=== PATIENT | female | born 1950 | race Caucasian/White ===

== ENCOUNTER 2021-03-03 15:26 | Emergency (ER) | payer MEDICARE, MEDICAID, SELFPAY ==
[2021-03-03 15:31] VITALS: BP 146/85; PULSE 83; RESP 15; TEMP 37.1; O2SAT 97; BMI 40.4
--- NOTE | 2021-03-03 15:32 | ED_ITS ---
HPI - Chest Pain General: Chief Complaint: Chest Pain Stated Complaint: CHEST PAIN Time Seen by Provider: 03/03/21 15:32 History of Present Illness: HPI narrative: Ms. Johns is a 70-year-old lady with significant past medical history of hypertension, hyperlipidemia, COPD Who presents to the emergency department due to chest pain. Symptom onset was approximately 3 days ago and subacute. She describes intermittent pressure across her chest as well as radiation down the left arm. She noticed that this correlated with high blood pressure despite her taking her blood pressure medication. She describes that the characteristic is a warm or tingly feeling. There is no associated lightheadedness, dizziness, nausea. There is mild associated shortness of breath due to discomfort. Overall the intensity is moderate. She denies similar episodes in the past. There are no other specific exacerbating or relieving factors or exercise component that the patient endorses. Review of Systems General: Reports: 10 or more systems reviewed and unremarkable except in HPI and below Narrative: CONSTITUTIONAL: denies fever, fatigue, weakness EYES - denies pain, denies loss of vision EARS - denies ear issues. NOSE - denies congestion or rhinorrhea. THROAT - denies sore throat or difficulty swallowing. CARDIOVASCULAR -see HPI RESPIRATORY -see HPI GASTROINTESTINAL - denies abdominal pain, no nausea vomiting, no changes in bowel habits GENITOURINARY - denies dysuria or urinary frequency MUSCULOSKELETAL- denies deformity or pain SKIN - denies rashes or new changed skin lesions NEUROLOGIC - denies focal weakness or sensory changes HEMATOLOGIC/LYMPHATIC - denies easy bruising or lymphadenopathy. Physical Exam Narrative: EXAM NARRATIVE: GENERAL/CONSTITUTIONAL - well-appearing. No acute distress. Eyes - PERRL, no conjunctival injection ENMT - Atraumatic external nose and ears. Moist mucous membranes NECK - supple. trachea midline CARDIOVASCULAR - regular rate and rhythm. Peripheral pulses 2+ and equal RESPIRATORY -clear to auscultation bilaterally. No retractions or accessory muscle use. ABDOMEN/GI - Nontender/Nondistended. No tenderness to percussion or evidence of peritonitis MSK - Extremities without obvious deformity or tenderness to palpation SKIN - Warm, Dry NEURO - alert and appropriately oriented. strength and sensation intact. Moves all extremities equally. PSYCH - Appropriate mood and affect Course ED course: - Patient was seen and evaluated by me at bedside - Patient placed on cardiac monitors, IV access obtained - Initial evaluation notable for no acute distress, nontoxic appearance. - Labs notable for no acute abnormality to explain the patient's symptoms, negative delta troponin. - Imaging notable for no acute abnormality to explain patient's symptoms - Upon serial reexamination after treatment the patient was similar - Based on patient history, evaluation, labs, and imaging as interpreted the most likely cause of the patient's condition is chest pain of unclear etiology - The results of ED evaluation were discussed with the patient. I explained the methodology and risk stratification of heart score and the fact that the patient is moderate risk which means up to roughly 20% 45-day risk of major adverse cardiac events. I recommended admission however the patient would like to follow-up in the outpatient setting. Case management order written. I discussed. followup plan, and return precautions. The patient verbalized understanding and felt safe for discharge. - Patient discharged in satisfactory condition. Vital Signs: Vital signs: Vital Signs Temperature 98.8 F 03/03/21 15:31 Pulse Rate 85 03/03/21 20:04 Respiratory Rate 16 03/03/21 20:04 Blood Pressure 147/100 03/03/21 20:04 Pulse Oximetry 96 03/03/21 20:04 MDM - Chest Pain Medical Records: Attestation: I reviewed the patient's medical records. Lab Data: Attestation: I reviewed the patient's lab results. Labs: Lab Results 03/03/21 03/03/21 03/03/21 Range/Units 16:00 16:00 16:00 WBC 11.0 H (4.0-10.0) 10^3/ uL RBC 4.94 (4.1-5.3) 10^6/u L Hgb 13.8 (11.5-15.3) g/dL Hct 43.3 (37.0-47.0) % MCV 87.7 (81-99) fl MCH 27.9 L (28.0-34.0) pg MCHC 31.9 (30.0-36.0) g/dL RDW 13.6 (12.1-15.1) % Plt Count 332 (130-400) 10^3/c mm MPV 9.1 (7.4-10.4) fL Neut % (Auto) 74.4 % Lymph % (Auto) 18.1 % [place] % (Auto) 6.4 % Eos % (Auto) 0.2 % Baso % (Auto) 0.3 % Neut # (Auto) 8.20 H (1.8-7.7) 10^3/u L Lymph # (Auto) 2.0 (0.8-4.8) 10^3/u L [place] # (Auto) 0.7 (0.2-0.9) 10^3/u L Eos # (Auto) 0.0 (0.0-0.8) 10^3/u L Baso # (Auto) 0.0 (0.0-0.1) 10^3/u L Nucleated RBC % (a uto) 0 % Nucleated RBCs # 0.0 /100WBC PT 14.00 (12.1-14.9) SECO NDS INR 1.05 (0.8-1.2) APTT 32.2 (23.9-36.7) SECO NDS Sodium 141 (136-145) mmol/L Potassium 3.6 (3.5-5.1) mmol/L Chloride 101 (98-107) mmol/L Carbon Dioxide 27 (22-29) mmol/L Anion Gap 16.6 (5-19) BUN 7 L (8-23) mg/dL Creatinine 0.6 (0.5-0.9) mg/dL GFR Calculation 98.8 (90-130) mL/min Glucose 93 (65-115) mg/dL Calculated Osmolal ity 290 (285-295) mOsm/k g Calcium 9.3 (8.5-10.5) mg/dL Total Bilirubin 0.2 (0.15-1.2) mg/dL AST 18 (0-32) U/L ALT 13 (0-33) U/L Alkaline Phosphata se 78 (35-105) IU/L Troponin T Baselin e (0-10) ng/L Troponin T 120 Min [place] (0-10) ng/L Delta Troponin T (0-10) ABS# NT-Pro-B Natriuret Pep 32 (0-125) pg/mL Total Protein 7.0 (6.6-8.7) g/dL Albumin 4.2 (3.5-5.2) g/dL Globulin 2.8 (1.3-4.6) g/dL Lipase 34 (13-60) U/L SARS-CoV-2 Ag (Rap id) (Negative) 03/03/21 03/03/21 03/03/21 Range/Units 16:00 17:05 18:10 WBC (4.0-10.0) 10^3/ uL RBC (4.1-5.3) 10^6/u L Hgb (11.5-15.3) g/dL Hct (37.0-47.0) % MCV (81-99) fl MCH (28.0-34.0) pg MCHC (30.0-36.0) g/dL RDW (12.1-15.1) % Plt Count (130-400) 10^3/c mm MPV (7.4-10.4) fL Neut % (Auto) % Lymph % (Auto) % [place] % (Auto) % Eos % (Auto) % Baso % (Auto) % Neut # (Auto) (1.8-7.7) 10^3/u L Lymph # (Auto) (0.8-4.8) 10^3/u L [place] # (Auto) (0.2-0.9) 10^3/u L Eos # (Auto) (0.0-0.8) 10^3/u L Baso # (Auto) (0.0-0.1) 10^3/u L Nucleated RBC % (a uto) % Nucleated RBCs # /100WBC PT (12.1-14.9) SECO NDS INR (0.8-1.2) APTT (23.9-36.7) SECO NDS Sodium (136-145) mmol/L Potassium (3.5-5.1) mmol/L Chloride (98-107) mmol/L Carbon Dioxide (22-29) mmol/L Anion Gap (5-19) BUN (8-23) mg/dL Creatinine (0.5-0.9) mg/dL GFR Calculation (90-130) mL/min Glucose (65-115) mg/dL Calculated Osmolal ity (285-295) mOsm/k g Calcium (8.5-10.5) mg/dL Total Bilirubin (0.15-1.2) mg/dL AST (0-32) U/L ALT (0-33) U/L Alkaline Phosphata se (35-105) IU/L Troponin T Baselin e 10 (0-10) ng/L Troponin T 120 Min [place] 8.95 (0-10) ng/L Delta Troponin T -1.05 L (0-10) ABS# NT-Pro-B Natriuret Pep (0-125) pg/mL Total Protein (6.6-8.7) g/dL Albumin (3.5-5.2) g/dL Globulin (1.3-4.6) g/dL Lipase (13-60) U/L SARS-CoV-2 Ag (Rap id) Negative (Negative) EKG Data^: EKG 1: Attestation: I personally reviewed and interpreted this EKG as follows: EKG interpretation date: 03/03/21 EKG interpretation time: 15:47 Prior EKG tracings: not available for review Interpretation: Twelve-lead EKG shows a regular sinus rhythm at a rate of 83. [place] interval 138, QRS duration 88, QTc 418. Normal axis. Interpretation: Sinus rhythm EKG 2: Attestation: I personally reviewed and interpreted this EKG as follows: EKG interpretation date: 03/03/21 EKG interpretation time: 19:05 Prior EKG tracings: available for review Interpretation: Twelve-lead EKG shows a regular sinus rhythm at a rate of 76. IL interval 148, QRS duration 87, QTc 407. Normal axis. Interpretation: Sinus rhythm Discharge Plan Discharge Patient Disposition: Home Clinical Impression: Chest pain, Shortness of breath Condition: Stable Prescriptions: No Action albuterol sulfate 2.5 mg /3 mL (0.083 %) solution for nebulization 2.5 mg inhalation Q6H PRN (Reason: Shortness Of Breath) RF: 0 lisinopril 20 mg tablet 20 mg PO BID RF: 0 amlodipine 5 mg tablet 5 mg PO DAILY RF: 0 bumdzquivv-squyznelflxna-bvji 50-325-40 mg tablet 1 tab PO BID PRN (Reason: Headache) RF: 0 pantoprazole 20 mg tablet,delayed release (DR/EC) 20 mg PO DAILY RF: 0 amitriptyline 25 mg tablet 25 mg PO BEDTIME RF: 0 simvastatin 20 mg tablet 20 mg PO DAILY RF: 0 Lasix 20 mg tablet 20 mg PO DAILY RF: 0 Ventolin HFA 90 mcg/actuation HFA aerosol inhaler 2 puff INHALATION Q6H PRN (Reason: Shortness Of Breath) RF: 0 sertraline 50 mg tablet 50 mg PO DAILY RF: 0 Mucus Relief ER 600 mg tablet extended release 12hr 600 mg PO BID PRN (Reason: Congestion) RF: 0 Trelegy Ellipta 200-62.5-25 mcg blister with device 1 ea inhalation DAILY RF: 0 Discharge Orders: Discharge ED (Routine); Ordered 03/03/21 Ordered By: Ac Plata Referrals: Norman Ramirez [Primary Care Provider] - Discharge Diet: Usual diet Discharge Activity: Resume usual activity Patient Instructions: Chest Pain (ED) Activity Restrictions/Additional Instructions: Thank you for visiting the emergency department. You were seen and evaluated for chest pain. The exact cause of your symptoms is unclear though you are overall moderate risk by heart score for adverse cardiac events. Please follow- up with cardiology and have an outpatient echocardiogram and stress test. Please return to the emergency department for worsening of your current symptoms or anything else that you are concerned about and feel needs emergency department evaluation. Coding Level of Care Code ED Dietary Services Director for [facility]
--- NOTE | 2021-03-03 15:47 | ECG_ITS ---
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 Measurements Intervals [place] Rate: 83 P: 42 MS: 138 QRS: 11 QRSD: 88 T: 52 QT: 356 QTc: 418 Interpretive Statements SINUS RHYTHM LOW QRS VOLTAGE IN PRECORDIAL LEADS [QRS DEFLECTION < 1.0 mV IN CHEST LEADS] SEPTAL MYOCARDIAL INFARCTION , OF INDETERMINATE AGE [40+ ms Q WAVE IN V1/V2] No previous ECG available for comparison Electronically Signed On 03-04-2021 13:10:16 CDT by Jenni Arce M.D. [id number]
--- NOTE | 2021-03-03 15:47 | XRR_ITS ---
PROCEDURE INFORMATION: Exam: XR Chest Exam date and time: 03/03/2021 3:47 PM Age: 70 years old Clinical indication: Pain; Chest pressure; Additional info: Cp TECHNIQUE: Imaging protocol: XR of the chest. Views: 1 view. COMPARISON: No relevant prior studies available. FINDINGS: Lungs: Unremarkable. No consolidation. Pleural spaces: Unremarkable. No pleural effusion. No pneumothorax. Heart/Mediastinum: Unremarkable. No cardiomegaly. Bones/joints: Left shoulder reverse arthroplasty. XR/XR chest 1V portable [id number] IMPRESSION: No acute pulmonary disease.
[2021-03-03] MEDS: sodium chloride 0.9% 500 ML 999 ML IV (16:11)
[2021-03-03 16:25] LABS: Basophils % 0.3 %; Eosinophils % 0.2 %; Hematocrit 43.3 % (37.0-47.0); Hemoglobin 13.8 g/dL (11.5-15.3); Lymphocytes % 18.1 %; Mean Corpuscular HGB Conc 31.9 g/dL (30.0-36.0); Mean Corpuscular Hemoglobin 27.9 pg (28.0-34.0); Mean Corpuscular Volume 87.7 fl (81-99); Mean Platelet Volume 9.1 fL (7.4-10.4); Monocytes # 0.7 10^3/uL (0.2-0.9); Monocytes % 6.4 %; Neutrophils % 74.4 %; Nucleated Red Blood Cells % 0 %; Platelet Count 332 10^3/cmm (130-400); Red Blood Count 4.94 10^6/uL (4.1-5.3); Red Cell Distribution Width 13.6 % (12.1-15.1)
[2021-03-03 16:37] LABS: INR 1.05 (0.8-1.2)
[2021-03-03 16:38] LABS: Partial Thromboplastin Time 32.2 SECONDS (23.9-36.7)
[2021-03-03 16:46] VITALS: BP 117/77; PULSE 82; RESP 18; O2SAT 97
[2021-03-03 16:48] LABS: Troponin(5th) Baseline 10 ng/L (0-10)
[2021-03-03 17:09] LABS: Alanine Aminotransferase 13 U/L (0-33); Albumin Level 4.2 g/dL (3.5-5.2); Alkaline Phosphatase 78 IU/L (35-105); Anion Gap 16.6 (5-19); Aspartate Amino Transferase 18 U/L (0-32); Blood Urea Nitrogen 7 mg/dL (8-23); Calcium 9.3 mg/dL (8.5-10.5); Carbon Dioxide 27 mmol/L (22-29); Chloride 101 mmol/L (98-107); Globulin 2.8 g/dL (1.3-4.6); Glomerular Filtration Rate 98.8 mL/min (90-130); Glucose 93 mg/dL (65-115); Lipase 34 U/L (13-60); NT Pro B Type Natriuretic Pept 32 pg/mL (0-125); Osmolality Calculated 290 mOsm/kg (285-295); Potassium 3.6 mmol/L (3.5-5.1); Sodium 141 mmol/L (136-145); Total Bilirubin 0.2 mg/dL (0.15-1.2)
[2021-03-03] MEDS: lidocaine 2% viscous 15 ML, aluminum-mag hydrox-simethicon 30 ML, sucralfate oral liq 1 GM PO (17:20)
--- NOTE | 2021-03-03 17:47 | ECG_ITS ---
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 Measurements Intervals [place] Rate: 76 P: 46 [place]: 148 QRS: 10 QRSD: 87 T: 49 QT: 360 QTc: 407 Interpretive Statements SINUS RHYTHM Compared to ECG 03/03/2021 15:40:37 Myocardial infarct finding no longer present Electronically Signed On 03-04-2021 13:20:59 CDT by Jenni Arce M.D. [id number]
[2021-03-03 18:27] LABS: SARS Covid-2 Antigen Negative (Negative)
[2021-03-03 18:46] VITALS: BP 203/146; PULSE 80; RESP 16; O2SAT 96
[2021-03-03 18:49] LABS: Troponin 5 2HR 8.95 ng/L (0-10)
[2021-03-03 18:50] LABS: Troponin 5 2HR Delta -1.05 ABS# (0-10)
[2021-03-03] MEDS: lisinopril 20 mg Tablet PO (19:54)
[2021-03-03 20:04] VITALS: BP 147/100; PULSE 85; RESP 16; O2SAT 96
--- NOTE | 2021-03-05 13:22 | DCPLANNER ---
late entry - community case manager had message to schedule an out patient stress test and an echo cardiogram. manager treasury faxed signed order to centralized scheduling, who will call patient with appointment information. 03.05.21 - community case manager had message to schedule a follow up appointment for patient with heart care. manager treasury called heart care, spoke with Cadence, gave clinic patients information. A follow up appointment was scheduled for Friday, April 09, 2021 at 12:[address] Arce. manager treasury called patient to give patient the appointment information. Patient stated that she has an appointment with her primary care, she wants to see him before having any tests completed. Patient also stated that she wants to stay in the [facility] network. manager treasury called centralized scheduling and cancelled the stress test and the echo cardiogram, and called heart care, cancelled the appointment at heart [facility], per patient request.
== END 2021-03-03 20:04 | disposition home or self-care (01) ==
PROVIDERS: Emergency Provider Emergency Medicine; PCP Family Medicine
DX: R07.9 Chest pain, unspecified (principal); R06.02 Shortness of breath; I10 Essential (primary) hypertension; E78.5 Hyperlipidemia, unspecified; J44.9 Chronic obstructive pulmonary disease, unspecified
CPT/HCPCS: 36415; 71045; 80053; 83690; 83880; 84484; 85025; 85610; 85730; 87426; 93005; 96360; 99284; J7040